=== PATIENT | male | born 1955 | race Caucasian/White ===

== ENCOUNTER → 2017-10-22 | Outpatient (REF) | payer OTHER | LOC: M SMT 13:07 | DX: R97.20 Elevated prostate specific antigen [PSA] (principal) ==

== ENCOUNTER → 2017-10-26 | Outpatient (CLI) | payer OTHER | LOC: M SMT PRO 08:21 | DX: R97.20 Elevated prostate specific antigen [PSA] (principal); N40.1 Benign prostatic hyperplasia with lower urinary tract symptoms | CPT/HCPCS: G0416 ==

== ENCOUNTER → 2018-11-07 | Outpatient (REF) | payer OTHER | LOC: M SMT 17:02 | PROVIDERS: ATTEND Nurse Practitioner Family | DX: R97.20 Elevated prostate specific antigen [PSA] (principal) ==

== ENCOUNTER → 2019-02-01 | Outpatient (CLI) | payer OTHER ==
[~2019-02-01] MED LIST: FINA5TAB2 PO; FLOM0.4C39 PO
--- NOTE | 2019-02-03 14:44 | REP ---
PET/CT: HISTORY: Diagnosing solitary pulmonary nodule. Recent CT study read as showing a 3 cm nodular density in the right upper lobe. COMPARISONS: Comparison CT study of the chest December 30, 2018. TECHNIQUE: 57 minutes following the intravenous injection of a 8.10 mCi dose of F-18 FDG, three-dimensional PET scintigraphy is acquired from the skull base to the proximal thighs. Triplanar noncontrast CT scanning is acquired through the same anatomic range for attenuation correction, and image registration with scan parameters optimized to minimize radiation exposure to the patient. PET scintigraphy and CT datasets were fused and displayed on a workstation with multiplanar and projection display capability. PET/CT FINDINGS: There is a focus of hypermetabolic uptake in the pleural-based nodular opacity with associated fibrosis in the right upper lobe near the apex. This has maximum standard uptake value of 6.02. It has a somewhat linear morphology. Medially adjacent to this, there is a tiny focus of metabolic activity with maximum SUV value 3.42 along the pleural surface at the medial edge of the posterior 4th rib. No nodule or mass lesion is visible here. This is of uncertain significance. There is no other abnormal pulmonary parenchymal hypermetabolic uptake. There is no abnormal mediastinal or hilar hypermetabolic uptake. In the abdomen and pelvis, there is no abnormal adrenal hepatic or other hypermetabolic abnormality. Head and neck soft tissues are unremarkable. Prostate gland is enlarged. IMPRESSION: There is hypermetabolic uptake in the nodular density at the apex of the right lung. This has a somewhat linear morphology and there is a second pleural-based focus of uptake medially. These changes are nonspecific. They may be granulomatous or neoplastic. No other abnormal hypermetabolic uptake. Electronically Signed by Thomas Evans MD 02/05/2019 12:12 P
== END ==
LOC: M PLARAD 09:06
PROVIDERS: ATTEND Internal Medicine Pulmonary Disease
DX: R91.1 Solitary pulmonary nodule (principal)
CPT/HCPCS: 78815; A9552

== ENCOUNTER → 2019-02-09 | Outpatient (REF) | payer OTHER ==
[2019-02-09 17:55] LABS: INR 0.95; PROTHROMBIN TIME 12.8 SECONDS (12.1-14.4)
[2019-02-09 17:56] LABS: PARTIAL THROMBOPLASTIN TIME 31.6 SECONDS (25.4-37.6)
== END ==
LOC: M LAB REF 17:17
PROVIDERS: ATTEND Physician Assistant
DX: R91.1 Solitary pulmonary nodule (principal)

== ENCOUNTER → 2019-02-20 | Outpatient (CLI) | payer OTHER ==
[~2019-02-20] MED LIST changes: +LIDOCAINE 1% MDV 20ML VIAL As Ordered ONE
--- NOTE | 2019-02-20 11:46 | REP ---
CHEST, SINGLE EXPIRATORY VIEW: Single expiratory view of the chest is performed status post right lung biopsy. There is no pneumothorax. Right apical irregular nodular opacity is seen with right apical bullous changes as well. The heart is normal in size. Dependent atelectatic changes are seen inferiorly. IMPRESSION: No pneumothorax status post right lung biopsy. Electronically Signed by Luc Martini MD 02/20/2019 07:47 P
--- NOTE | 2019-02-20 18:42 | REP ---
CT-GUIDED RIGHT UPPER LOBE LUNG BIOPSY The procedure was performed under the direct supervision of Dr. Martini. The patient has a history of hypermetabolic uptake in an nodular density in the apex of the right lung seen on a previous PET scan dated 02/01/2019. The risks and benefits of the procedure were explained to the patient and informed consent was obtained. The right upper lobe lung nodule was localized using CT guidance. The skin was prepped and draped in a sterile fashion. 1% lidocaine was used as a local anesthetic. Using CT guidance a 19/20 gauge coaxial needle biopsy system was inserted and advanced into the nodule. Four core biopsy samples were obtained and sent to lab. The patient tolerated the procedure well and there were no immediate complications. After the appropriate amount of monitored convalescence the patient was discharged from the department. Reviewed by BIRGIT Canseco 02/20/2019 03:35 P Electronically Signed by Luc Martini MD 02/20/2019 06:34 P
== END ==
LOC: M RADPRO 08:03
PROVIDERS: ATTEND Physician Assistant
DX: J84.10 Pulmonary fibrosis, unspecified (principal); R91.1 Solitary pulmonary nodule

== ENCOUNTER → 2019-06-02 | Outpatient (CLI) | payer OTHER ==
[~2019-06-02] MED LIST changes: -LIDOCAINE 1% MDV 20ML VIAL As Ordered ONE
--- NOTE | 2019-06-02 09:50 | REP ---
CT chest without contrast: History: Solitary pulmonary nodule. On February 20, 2019, the patient underwent CT guided needle biopsy of a pleural-based process in the right upper lobe with histologic result of fibrous tissue with focal anthracotic pigmentation and chronic inflammation. Comparison chest CT study December 30, 2018 from [facility]. Comparison PET/CT study February 01, 2019. Findings: There is a stable appearing area of pleuroparenchymal fibrosis at the site of the recent CT guided needle biopsy. This is unchanged from December 30, 2018. This is the area where PET/CT showed increased uptake. There are adjacent large emphysematous bullae. There are some emphysematous bullae in the left apex. Advanced emphysema is seen throughout the upper lobes and to a lesser extent, the lower lobes. There is a fairly large bullous in the right lower lobe unchanged. No new pulmonary nodule or mass lesion is seen. No hilar or mediastinal adenopathy is observed. There are granulomatous lymph node calcifications on the left. No endobronchial lesion is seen. No bony destructive lesion is appreciated. Impression: Advanced COPD changes. Stable area of pleuroparenchymal fibrosis and/or thickening in the right apex. Unchanged from December 30, 2018 CT study. Electronically Signed by Thomas Evans MD 06/02/2019 04:00 P
== END ==
LOC: M RAD 08:27
PROVIDERS: ATTEND Internal Medicine Pulmonary Disease
DX: J44.9 Chronic obstructive pulmonary disease, unspecified (principal)

== ENCOUNTER → 2019-09-08 | Outpatient (REF) | payer OTHER | LOC: M SMT 13:44 | PROVIDERS: ATTEND Nurse Practitioner Family | DX: R97.20 Elevated prostate specific antigen [PSA] (principal) ==

== ENCOUNTER → 2020-01-18 | Outpatient (CLI) | payer OTHER ==
[~2020-01-18] MED LIST changes: +PROHANCE 279.3MG/ML 15ML VIAL (A9576) As Ordered ONE
--- NOTE | 2020-01-18 14:41 | REP ---
MULTIPARAMETRIC PROSTATE MRI STUDY WITH AND WITHOUT GADOLINIUM: HISTORY: Elevated PSA. TECHNIQUE: Multiple sequences obtained in the axial, coronal and sagittal planes, with images centered on the prostate. Prostate is enlarged. There is diffuse heterogeneous signal and enhancement with nodular areas of mixed signal throughout the central and transitional zone consistent with benign prostatic hypertrophy. There is mild diffuse thickening of the bladder wall. No adenopathy or free fluid is seen in the pelvis. No bone lesion is seen of the pelvic osseous structures. The prostate measures 6.7 x 5.0 x 7.6 cm for a total volume of 102.27 mL. Three regions of interest are identified of the prostate for MR ultrasound fusion guided biopsy. First in the right mid apical transitional zone, there is an area of mixed hyperintense and hypointense signal on T2, which is not encapsulated or well defined. There are areas of type 2 enhancement internally. The area measures 2.1 x 0.9 x 2.8 cm for a total volume of 2.58 mL. Overall level of suspicion is 3 out of 5 with clinically significant cancer equivocal. Next, in the left basilar anterior transitional zone, mid transitional zone, and left apical anterior transitional zone, there is a geographic area of predominantly T2 signal hyperintensity which is not well-defined. There are areas of internal type 2 enhancement. The area measures 2.2 x 1.3 x 3.5 cm for a total volume of 5.51 mL. Overall level of suspicion is 3 out of 5 with clinically significant cancer equivocal. Finally, in the left mid posterior peripheral zone, there is a band of low signal on T2 and diffusion-weighted images. There is predominantly type 1 enhancement in this region. The area measures 2.1 x 0.6 x 1.7 cm for a total volume of 1.19 mL. Overall level of suspicion is 3 out of 5 with clinically significant cancer equivocal. IMPRESSION: Three regions of interest are identified and marked for consideration for ultrasound MR fusion-guided biopsy. Prostate is significantly enlarged with findings of benign prostatic hypertrophy. Electronically Signed by Luc Martini MD 01/18/2020 02:37 P
== END ==
LOC: M RAD 10:58
PROVIDERS: ATTEND Nurse Practitioner Family
DX: R97.20 Elevated prostate specific antigen [PSA] (principal)
CPT/HCPCS: 72197; A9576

== ENCOUNTER → 2020-01-30 | Outpatient (CLI) | payer OTHER ==
[~2020-01-30] MED LIST changes: -PROHANCE 279.3MG/ML 15ML VIAL (A9576) As Ordered ONE
--- NOTE | 2020-01-30 11:16 | REPPI ---
TRANSRECTAL ULTRASOUND GUIDANCE FOR PROSTATE BIOPSY: Transrectal ultrasound guidance was provided for prostate biopsy performed by Dr. Pedersen. This is MR ultrasound fusion-guided biopsy, with prostate MRI performed 01/18/2020. Electronically Signed by Luc Martini MD 01/30/2020 01:03 P
== END ==
LOC: M SMT PRO 08:37
PROVIDERS: ATTEND Urology
DX: R97.20 Elevated prostate specific antigen [PSA] (principal)
CPT/HCPCS: 76942; G0416

== ENCOUNTER → 2020-03-05 | Outpatient (CLI) | payer OTHER ==
--- NOTE | 2020-03-06 08:10 | REP ---
REASON FOR EXAM: Followup hypermetabolic activity seen in the right lung upper lobe region, pleural based on the prior PET/CT scan of 02/01/2019, which has been reviewed. After the intravenous administration of 8.57 millicuries of FDG 18 triplane whole body PET/CT was performed from the skull base to the mid thigh. Prior CT has been reviewed. The pleural-based right upper lobe medial and paraspinal hypermetabolic activity seen on the prior examination has increased in size and has increased avidity for FDG 18 showing maximal SUV values of 25. Additionally, inferior to the aforementioned and posteriorly, there is a smaller pleural-based nodule also hypermetabolic having maximal SUV values of 3.76. This small area was not present on the prior exam as a hypermetabolic focus, however, by standard CT appeared to be slight pleural thickening. The more superior, medial, and larger of the two regions measures approximately 3.7 x 1.7 cm. There are no additional abnormal areas of abnormal hypermetabolic activity seen in the neck, chest, abdomen or pelvis. IMPRESSION: Areas of pleural-based and somewhat nodular hypermetabolic activity seen in the right lung upper lobe as described above. Certainly, reactive infectious, fibrotic, or neoplastic changes remain in the differential diagnosis. Electronically Signed by Jose Raul Cho DO 03/06/2020 11:22 A
== END ==
LOC: M PLARAD 07:29
PROVIDERS: ATTEND Internal Medicine Pulmonary Disease
DX: R91.1 Solitary pulmonary nodule (principal)
CPT/HCPCS: 78815; A9552

== ENCOUNTER → 2020-03-08 | Outpatient (REF) | payer OTHER ==
[2020-03-08 17:58] LABS: PLATELET COUNT, AUTOMATED 266 10^3/uL (150-450)
[2020-03-08 18:09] LABS: INR 0.93; PROTHROMBIN TIME 12.2 SECONDS (11.8-14.0)
== END ==
LOC: M LAB REF 16:56
PROVIDERS: ATTEND Internal Medicine Pulmonary Disease
DX: R91.8 Other nonspecific abnormal finding of lung field (principal)

== ENCOUNTER → 2020-03-22 | Outpatient (CLI) | payer OTHER ==
[~2020-03-22] MED LIST changes: +LIDOCAINE 1% MDV 20ML VIAL As Ordered ONE; +MIDAZOLAM INJ 2MG/2ML VIAL (J2250 PER 1MG) As Ordered ONE; +flumazeniL 0.5 MG/5 ML VIAL As Ordered ONE
[2020-03-22 12:00] VITALS: BP 126/82
--- NOTE | 2020-03-22 12:54 | REP ---
Chest x-ray: Two views. History: Post CT guided needle biopsy procedure, two targets right lung. Comparison chest x-ray: February 20, 2019. Findings: Oxygen delivery tubing is seen. There is a small fluid level in the right mid lung zone bullous. This was adjacent to the second CT guided needle biopsy target. There is no visible pneumothorax. There is pleuroparenchymal opacity in the right apex unchanged. Impression: No pneumothorax seen. Electronically Signed by Thomas Evans MD 03/22/2020 12:45 P
--- NOTE | 2020-03-22 12:54 | REP ---
Chest x-ray: Single view. 12:14 p.m. film. History: Follow-up. Post needle biopsy procedure right chest, two targets. Comparison radiograph is from earlier this date 10:22 a.m. Findings: The previously noted air-fluid level in the right perihilar region persists posteriorly in the right lower lobe unchanged. There is no evidence of pneumothorax or rubén hydrothorax. Lung craig are otherwise clear and unchanged. Impression: No pneumothorax seen. Findings unchanged. Electronically Signed by Thomas Evans MD 03/22/2020 12:45 P
--- NOTE | 2020-03-22 17:50 | REP ---
CT-GUIDED RIGHT UPPER LOBE AND RIGHT LOWER LOBE LUNG BIOPSY The procedure was performed under the direct supervision of Dr. Evans. Patient has a history of A pleural-based right upper lobe mass which is hypermetabolic on a previous PET scan performed on 03/05/2020. There is a smaller right lower lobe nodule which is hypermetabolic as well. The risks and benefits of the procedure were explained to the patient and informed consent was obtained. The right upper lobe lesion was addressed first. The lesion was localized using CT guidance. The skin was prepped and draped in a sterile fashion. 1% lidocaine was used as a local anesthetic. Using CT guidance a 19/20 gauge coaxial needle biopsy system was inserted and advanced into the lesion. Five core biopsy samples were obtained and sent to lab. The right lower lobe lung nodule was then addressed. The nodule was localized using CT guidance. The skin was prepped and draped in a sterile fashion. 1% lidocaine was used as a local anesthetic. Using CT guidance a 19/20 gauge coaxial needle biopsy system was inserted and advanced into the nodule. Five core biopsy samples were obtained and sent to lab. Post biopsy images demonstrate a small pneumothorax. These are not evident on the post procedure chest x-rays. The patient tolerated the procedure well and there were no immediate complications. After the appropriate amount of monitored convalescence the patient was discharged from the department. Electronically Signed by BIRGIT Canseco 03/22/2020 02:07 P Electronically Signed by Thomas Evans MD 03/22/2020 05:39 P
== END ==
LOC: M IRPRO 08:13
PROVIDERS: ATTEND Internal Medicine Pulmonary Disease
DX: C34.11 Malignant neoplasm of upper lobe, right bronchus or lung (principal); J84.9 Interstitial pulmonary disease, unspecified
CPT/HCPCS: 32405; 77012; 88305; 88341; 88342; J2250

== ENCOUNTER → 2020-04-02 | Outpatient (CLI) | payer OTHER ==
[~2020-04-02] MED LIST changes: -LIDOCAINE 1% MDV 20ML VIAL As Ordered ONE; -MIDAZOLAM INJ 2MG/2ML VIAL (J2250 PER 1MG) As Ordered ONE; +ONDA8TAB10 PO; +PROC10TA4 PO; -flumazeniL 0.5 MG/5 ML VIAL As Ordered ONE
[2020-04-02 16:33] LABS: BASO # 0.1 10^3/uL (0.0-0.2); BASO % 0.6 % (0.0-1.0); EOS % 0.4 % (0.0-3.0); HEMOGLOBIN 16.3 g/dl (13.5-17.5); LYMPH # 1.1 10^3/uL (1.5-5.0); LYMPH % 13.4 % (24.0-44.0); MEAN CORPUSCULAR HGB CONC 33.3 g/dl (32.0-36.5); MEAN CORPUSCULAR VOLUME 96.3 fl (80.0-96.0); MONO # 0.7 10^3/uL (0.0-0.8); MONO % 7.8 % (0.0-5.0); NEUTROPHILS # 6.6 10^3/uL (1.5-8.5); NEUTROPHILS % 77.4 % (36.0-66.0); PLATELET COUNT, AUTOMATED 283 10^3/uL (150-450); RED BLOOD COUNT 5.09 10^6/uL (4.30-6.10); WHITE BLOOD COUNT 8.5 10^3/uL (4.0-10.0)
[2020-04-02 16:45] LABS: INR 0.93; PARTIAL THROMBOPLASTIN TIME 35.2 SECONDS (25.0-38.4); PROTHROMBIN TIME 12.2 SECONDS (11.8-14.0)
[2020-04-02 16:57] LABS: ALBUMIN 3.8 GM/DL (3.2-5.2); ALT/SGPT 34 U/L (12-78); BILIRUBIN,TOTAL 0.4 MG/DL (0.2-1.0); BLOOD UREA NITROGEN 12 MG/DL (7-18); CALCIUM LEVEL 9.4 MG/DL (8.8-10.2); CARBON DIOXIDE LEVEL 29 MEQ/L (21-32); CHLORIDE LEVEL 103 MEQ/L (98-107); CREATININE FOR GFR 1.13 MG/DL (0.70-1.30); FREE T4 1.14 NG/DL (0.76-1.46); GLOMERULAR FILTRATION RATE > 60.0 (>49); GLUCOSE, FASTING 96 MG/DL (70-100); POTASSIUM SERUM 4.3 MEQ/L (3.5-5.1); SODIUM LEVEL 137 MEQ/L (136-145); TOTAL PROTEIN 7.8 GM/DL (6.4-8.2)
== END ==
LOC: M LAB 15:58
PROVIDERS: ATTEND Internal Medicine Medical Oncology
DX: C34.90 Malignant neoplasm of unspecified part of unspecified bronchus or lung (principal)

== ENCOUNTER → 2020-04-10 | Outpatient (CLI) | payer OTHER ==
[~2020-04-10] MED LIST changes: +LIDO2.5C15 TOP; +LIDOCAINE 1% MDV 20ML VIAL As Ordered ONE; +MIDAZOLAM INJ 2MG/2ML VIAL (J2250 PER 1MG) As Ordered ONE; +ceFAZolin 1GM VIAL (J0690 PER 500MG) As Ordered ONE; +diphenhydrAMINE 50MG/ML VIAL (J1200) As Ordered ONE; +fentaNYL 100 MCG/2 ML INJECTION (J3010) As Ordered ONE
--- NOTE | 2020-04-10 16:12 | IRHP ---
[facility] IR Pre-Procedure H & P General Date of Service: Apr 10, 2020 Procedure: Same Day Surgery Interval History and Physical I have seen the patient and reviewed last H & P performed within 30 days. There is no significant interval change. History of Present Illness Chief Complaint The patient is a 64-year-old male admitted with a reason for visit of Lung Ca. PRE-PROCEDURE DIAGNOSIS:lung cancer HEART: normal rate. LUNGS: normal breathing at rest. ASA Classification ASA Classification: III-Severe systemic dis. Mallampati Score: II NPO: Yes Problems with prior sedation: No Obstructive Sleep Apnea: No Plan moderate sedation Allergies Coded Allergies: No Known Allergies (Unverified , 02/20/19) Home Medications Scheduled Finasteride (Finasteride), 5 MG PO QPM, (Reported) Tamsulosin HCl (Flomax), 0.4 MG PO QPM, (Reported) VS, I&O, 24H, Fishbone Vital Signs/I&O Vital Signs Date Time Temp Pulse Resp B/P (MAP) Pulse Ox O2 Delivery O2 Flow Rate FiO2 04/10/20 15:46 78 18 96 Room Air 04/10/20 15:07 2 04/10/20 13:45 98.7 TOMMY KOHLER MD Apr 10, 2020 16:12
--- NOTE | 2020-04-10 16:12 | REP ---
IR Ultrasound and fluoroscopy-guided port placement. IR Ultrasound of the neck. IR Moderate sedation. Clinical information: Lung cancer. Physician: Dr. Ruvalcaba. Procedure: The patient was advised of the benefits, risks, and alternatives of the procedure and informed consent was obtained. A time-out was performed with verification of the patient's name, MRN, site of procedure and type of procedure to be performed. The patient was positioned in the supine position on the angiographic table. The site was prepped and draped in the usual sterile fashion. Moderate sedation was performed by the physician including the presence of an independent trained observer who assisted and monitored the patient's level of consciousness and physiologic status. Following the administration of fentanyl and Versed , the physician spent 30 minutes of continuous face to face time with the patient. Ultrasound of the neck reveals a patent and compressible right internal jugular vein. A director targeted marketing radiograph reveals aerated right lung. The neck and anterior chest wall were anesthetized with lidocaine. The right internal jugular vein was accessed using a microintroducer needle under ultrasound guidance, via a lateral approach. An 018 wire was advanced into the superior vena cava, the needle was removed and a microsheath was placed. An Amplatz wire was then passed into the inferior vena cava. An incision at the internal jugular vein access site and anterior chest wall were made using a scalpel. An incision was made at the anterior chest wall. A small pocket was created using a combination of blunt and sharp dissection. A tunneling device was then used to pass the catheter from the pocket to the neck puncture site. An 8-[place] Angio dynamics Smart power port was then positioned in the pocket. The catheter was then measured and cut. The introducer sheath was exchanged for a peel-away sheath. The catheter was passed through the peel-away sheath into the internal jugular vein and the peel-away sheath was removed. The port tip was positioned at the cavoatrial junction. The port was then accessed with a Faith needle. The port flushes and aspirates well. The puncture site in the neck was closed. The chest wall incision was then closed with 2-0 Vicryl and 4-0 Monocryl. Glue and Steri-Strips were applied. A sterile dressing was then applied. The patient tolerated the procedure well and was returned to the PRU in stable condition. Estimated blood loss: <5 ml. Complications: None. Conclusion: 1. Successful placement of an 8-[place] Angio dynamics Smart power port via the right internal jugular vein. The port is ready for immediate use. 2. Patient to follow up in IR clinic in 2 weeks. Thank you for this referral. Electronically Signed by Kristen Ruvalcaba MD 04/10/2020 04:11 P
[2020-04-10 16:46] VITALS: BP 120/79
== END ==
LOC: M IRPRO 13:26
PROVIDERS: ATTEND Internal Medicine Medical Oncology
DX: C34.11 Malignant neoplasm of upper lobe, right bronchus or lung (principal)
CPT/HCPCS: 36561; 99156; 99157; C1769; C1788; C1894; J0690; J1200; J1642; J1644; J2250; J3010

== ENCOUNTER → 2020-04-30 | Outpatient (POV) | payer OTHER ==
[~2020-04-30] MED LIST changes: -LIDOCAINE 1% MDV 20ML VIAL As Ordered ONE; -MIDAZOLAM INJ 2MG/2ML VIAL (J2250 PER 1MG) As Ordered ONE; -ceFAZolin 1GM VIAL (J0690 PER 500MG) As Ordered ONE; -diphenhydrAMINE 50MG/ML VIAL (J1200) As Ordered ONE; -fentaNYL 100 MCG/2 ML INJECTION (J3010) As Ordered ONE
--- NOTE | 2020-06-06 10:29 | IRPN ---
[facility] IR Progress Note IR Progress Note DATE: Apr 30, 2020 Patient agreed to this telephone follow-up. Duration of call 5 minutes. FOLLOW-UP: Status post port placement. Patient states he is doing well. Reports no pain, fevers, chills or discharge at site. Port has not been used yet. ON EXAMINATION: Video conference: Port site looks good. No redness, swelling or discharge at site. IMPRESSION: Doing well status post port placement. No further follow-up scheduled unless initiated by patient and/or referring provider. Thank you for this referral Allergies Coded Allergies: No Known Allergies (Unverified , 02/20/19) TOMMY KOHLER MD Jun 06, 2020 10:29
== END ==
LOC: M IRPOV 09:45
PROVIDERS: ATTEND Radiology Diagnostic Radiology
DX: Z45.2 Encounter for adjustment and management of vascular access device (principal)

== ENCOUNTER → 2020-06-03 | Outpatient (RCR) | payer OTHER | LOC: M ONCR 05-10 15:03 | PROVIDERS: ATTEND General Practice | DX: C34.11 Malignant neoplasm of upper lobe, right bronchus or lung (principal) ==

== ENCOUNTER 2020-06-25 09:00 | Outpatient (RCR) | payer OTHER ==
--- NOTE | 2020-07-08 08:05 | RADONC ---
DATE: 06/25/20 Chart #[id number] DIAGNOSIS: 1. Right upper lobe lung cancer. Stage IIIA, T4, N0, M0. ECOG performance status 0. TREATMENT SUMMARY: Mr. 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 We treated the patient to his right upper lobe for a total dose of 6000 cGy delivered in 30 fractions of 200 cGy, each over 42 elapsed days, from 05/14/20 through 06/25/20. The patients right upper lobe was treated on a linear accelerator utilizing a 6 MV photon beam with IMRT/IGRT. Mr. Field tolerated his treatments quite well with no significant difficulties related to his radiation therapy. He had some fatigue but otherwise did well. The patient is scheduled to be seen in our department in six months for routine follow-up visit. In the meantime, he is being seen and managed closely by his medical oncologist. We are happy to see him sooner on a p.r.n. basis as needed. Edited: 07/08/2020 1118 vlm MTDD
== END 2020-07-03 ==
LOC: M ONCR 09:00
PROVIDERS: ATTEND General Practice
DX: C34.11 Malignant neoplasm of upper lobe, right bronchus or lung (principal)

== ENCOUNTER → 2020-07-05 | Outpatient (CLI) | payer OTHER ==
[~2020-07-05] MED LIST changes: +GASTROGRAFIN SOLUTION 30ML (Q9963) As Ordered ONE; +ISOVUE-370 76% 100ML VIAL As Ordered ONE
--- NOTE | 2020-07-15 12:45 | REP ---
CT ABDOMEN WITH INTRAVENOUS (IV) AND ORAL CONTRAST HISTORY: Lung cancer. COMPARISON: PET CT study 03/05/2020. CT CONTRAST DOSE: 100 mL of intravenous Isovue-370. CT FINDINGS: The liver and the spleen are normal in size and homogeneous in texture. No adrenal lesion is seen on either side. There is a small peripheral cyst in the upper pole of the right kidney. No abnormality is noted in the pancreas. The gallbladder is unremarkable. Small and large intestinal bowel loops show no evidence of mass or obstructive lesion. No retroperitoneal mass or adenopathy is seen. IMPRESSION: No evidence of upper abdominal metastatic disease. MTDD
--- NOTE | 2020-07-15 12:46 | REP ---
CT CHEST WITH INTRAVENOUS (IV) CONTRAST HISTORY: Lung carcinoma. COMPARISON: Chest CT study 02/01/2020. PET CT 03/05/2020. CT CONTRAST DOSE: 100 mL of intravenous Isovue-370. CT FINDINGS: There is a 5.6 cm area of metastatic rib destruction involving the right posterior fourth rib. There is some adjacent pleural thickening and soft tissue density. This is the area where CT-guided needle biopsy was conducted on 03/22/2020. This corresponds to the pleural uptake focus on 03/05/[address] There is radiolucent and cortical disruption of the adjacent right T4 transverse process associated with this. The bony destructive findings are much more pronounced than the equivocal changes seen at the time of the 02/01/2020 CT study. There has been progression since the PET CT of 03/05/2020 as well. No new bony destructive lesion is seen. No adrenal lesion is observed. No pleural or pericardial effusion is observed. No hilar or mediastinal mass or adenopathy has developed. There is some pleural parenchymal scarring in the right apex, which is adjacent to the chest wall lesion described above. This is unchanged. The nodular density, which was biopsied recently, is no longer apparent. There is a new pleural-based nodular opacity, which measures 12 mm in diameter. This is seen along the major fissure and may be fissural fluid. It was not present on the March or January CT studies. No other new pulmonary nodule is seen. There are advanced emphysematous changes bilaterally in the upper and to a lesser extent lower lobes. IMPRESSION: Progressive bone destruction right 4th posterior rib and adjacent right T4 transverse process. Emphysematous changes. Otherwise no active disease. MTDD
== END ==
LOC: M RAD 07:54
PROVIDERS: ATTEND Internal Medicine Medical Oncology
DX: C34.90 Malignant neoplasm of unspecified part of unspecified bronchus or lung (principal); C79.51 Secondary malignant neoplasm of bone; J43.9 Emphysema, unspecified; N28.1 Cyst of kidney, acquired

== ENCOUNTER → 2020-10-15 | Outpatient (CLI) | payer OTHER ==
--- NOTE | 2020-10-15 11:45 | REP ---
INDICATION: LUNG CA COMPARISON: 07/05/2020 TECHNIQUE: Axial contrast enhanced images from the thoracic inlet to the upper abdomen with coronal and sagittal reformations using 75 ml Isovue [address] examination was performed using the following dose reduction techniques: Automated exposure control, adjustment of mA and/or kv according to the patient's size, and use of iterative reconstruction technique. FINDINGS: Lung craig demonstrate advanced COPD/emphysematous changes with bronchiectasis and scarring. Pleuroparenchymal changes along the posterior aspect of the right upper lung zone including pleural thickening and pleural based soft tissue with linear scarring is similar to prior examination although these findings may be slightly increased as compared through 06/02/2019 exam. Continued active pathology versus chronic progressive fibrosis cannot be distinguished. No further acute consolidation or significant nodule/mass lesion appreciated. The mediastinum demonstrates stable thoracic aorta, pulmonary vasculature, and heart/pericardium along with few partially calcified lymph nodes. No axillary, hilar, or mediastinal adenopathy is identified. [id number] noted with tip in the SVC. Musculoskeletal structures demonstrate age-related degenerative changes without acute process. IMPRESSION: 1. Advanced COPD/emphysematous changes with bronchiectasis and scarring essentially unchanged. 2. Pleuroparenchymal changes along the posterior aspect of the right upper lung zone appears somewhat progressive when compared through 06/02/2019 and relatively similar to most recent prior exam dated 07/05/2020. Differential diagnosis unfortunately includes subtle active pathology as well as progressive fibrosis. 3. No further significant consolidation, nodule or mass lesion appreciated. No adenopathy identified. <Electronically signed by Maikel Horne > 10/15/20 2201
== END ==
LOC: M RAD 09:28
PROVIDERS: ATTEND Internal Medicine Medical Oncology
DX: C34.90 Malignant neoplasm of unspecified part of unspecified bronchus or lung (principal); J44.9 Chronic obstructive pulmonary disease, unspecified
CPT/HCPCS: 71260; 74177; Q9963; Q9967

== ENCOUNTER → 2020-12-25 | Outpatient (CLI) | payer OTHER ==
[~2020-12-25] MED LIST changes: -GASTROGRAFIN SOLUTION 30ML (Q9963) As Ordered ONE; -ISOVUE-370 76% 100ML VIAL As Ordered ONE
--- NOTE | 2020-12-25 09:30 | RADONC ---
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 He is s/p chemoradiation 60 Gy in 30 fractions completed 06/25/21. His initial complaint of back pain resolved entirely by the end of chemoradiation. He also had an initial excellent response on CT from 07/05/20 (disagree strongly with radiologist's read) and continued on adjuvant chemotherapy with Dr. Sarmiento. He received 4 cycles of carbo/taxol completed 10/29/20. He continues on keytruda monotherapy. Diagnosis/Treatment History Oncologic History As above Recent data: 10/15/20 CT chest Mild pleural thickening in the RUL, consistent with post treatment fibrosis. No new masses. Survivorship Test Due Next Last result Notes TSH, T4* 6m post-tx, then q1y 2021 TSH 1.3 12/17/20 Carotid US* q10 y post-tx N/A Smoking cessation Assess annually if applicable 2021 2020: Not interested Chest imaging As indicated, indefinite CT surveillance -02/[address] Sarmiento Mammograms Min q1y, in eligible female patients N/A Echocardiogram q10y post treatment if mediastinum treated N/A PFTs As indicated N/A CBC,CMP, Lipids q1y 2021 Interval History Feels well. Mild COPD symptoms. Not on any controller or rescue inhaled meds. No pain in the back. Had a skin reaction redness/dryness post RT which has healed. Main complaint is alopecia post chemotherapy. Hair coming back slowly. No side effects from Keytruda. 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 Do not rub in, cover with saran wrap to protect clothing. Prov:TRE SARMIENTO MD 05/28/20 Prochlorperazine Maleate (Prochlorperazine Maleate) 10 Mg Tablet, 10 MG PO Q6H PRN for NAUSEA OR VOMITING, #30 TAB 2 Refills Prov:TRE SARMIENTO MD 04/12/20 Ondansetron HCl (Ondansetron HCl) 8 Mg Tablet, 8 MG PO Q8H PRN for NAUSEA, #30 TAB 2 Refills Prov:TRE SARMIENTO MD 04/12/20 Reported Medications Finasteride (Finasteride) 5 Mg Tablet, 5 MG PO QPM, TAB 02/20/19 Tamsulosin HCl (Flomax) 0.4 Mg Capsule, 0.4 MG PO QPM, CAP 02/20/19 Review of Systems Review of Systems Constitutional: Reports: Fatigue; Denies: Chills, Fever, Malaise, Weight Loss Eyes: Denies: Pain HEENT: Denies: Head Aches Skin: Denies: Rash Pulmonary: Reports: Dyspnea, Cough; Denies: Pleuritic Chest Pain Cardiovascular: Denies: Chest Pain, Palpitations Gastrointestinal: Denies: Nausea, Vomiting, Abdominal Pain Hematologic: Denies: Bruising Endocrine: Denies: Cold Intolerance Musculoskeletal: Denies: Neck pain, Back pain Neurological: Denies: Weakness, Numbness, Incoordination Psych: Reports: Mood Normal Physical Examination Vital Signs Ht 70" Wt 159 lbs T 97.5 P 90 RR 18 BP 127/76 O2 99% Pain 0 Fatigue 2 General Exam: Positive: Alert, Cooperative, No Acute Distress Eye Exam: Positive: PERRLA, EOMI ENT EXAM: Positive: Atraumatic, Mucous membr. moist/pink Neck Exam: Positive: Supple; Negative: Lymphadenopathy Chest Exam: Positive: Clear to auscultation, Rhonchi (Bases BL) Heart Exam: Positive: Rate Normal, Regular Rhythm Abdomen Exam: Positive: Soft; Negative: Tenderness Extremity Exam: Negative: Edema Skin Exam: Positive: Nl turgor and temperature; Negative: Other skin issue (Left posterior chest wall and back without hyperpigmentation or telangiectasias) Neuro Exam: Positive: Normal Gait, Normal Speech Psych Exam: Positive: Mental status NL Diagnostic and Laboratory Diagnostic Review Radiologic images, relevant labs and pathology reports were personally reviewed and discussed with Mr. Field. Assessment and Plan Impression Assessment Mr. 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 He is s/p chemoradiation 60 Gy in 30 fractions completed 06/25/21. His initial complaint of back pain resolved entirely by the end of chemoradiation. He also had an initial excellent response on CT from 07/05/20 (disagree strongly with radiologist's read) and continued on adjuvant chemotherapy with Dr. Sarmiento. He received 4 cycles of carbo/taxol completed 10/29/20. He continues on keytruda monotherapy. He is doing very well, in clinical remission. No recrudescent back pain and no signs of post-RT pneumonitis. He is continuing on keytruda without side effects. Dr. Sarmiento is planning scans for later this Spring. He continues to follow with Dr. Driscoll as well. He is not in need of COPD medication at this time. He is also not interested in smoking cessation. I think continued regular follow up with Dr. Sarmiento is most important now as she is treating him actively. I will thus see him again in 6 months time and defer ordering of scans to her. Performance Status ECOG 0 Plan Follow up in 6 months time Scans per Dr. Sarmiento Mr. Field was encouraged to call with questions or concerns in the interim period. Billing Statement Total time of [22] minutes was spent preparing for the visit [2], obtaining HPI [4], examining the patient [3], reviewing diagnostic tests [3], discussing management options [4], coordinating care [0], and writing this note [6]. ELDER CABALLERO MD Dec 25, 2020 09:30
== END ==
LOC: M ONCR 08:43
PROVIDERS: ATTEND General Practice
DX: C34.11 Malignant neoplasm of upper lobe, right bronchus or lung (principal)

== ENCOUNTER → 2021-02-10 | Outpatient (CLI) | payer OTHER ==
[~2021-02-10] MED LIST changes: +GASTROGRAFIN SOLUTION 30ML (Q9963) As Ordered ONE; +ISOVUE-370 76% 100ML VIAL As Ordered ONE; +LIDO1CRE42 TOP; -LIDO2.5C15 TOP
--- NOTE | 2021-02-12 08:15 | REP ---
INDICATION: LUNG CANCER COMPARISON: 10/15/2020, 07/05/2020 TECHNIQUE: Axial contrast enhanced images from the thoracic inlet to the upper abdomen using 100 ml Isovue 370 intravenous contrast material followed by CT of the abdomen and pelvis. Coronal and sagittal reformations obtained.. This CT examination was performed using the following dose reduction techniques: Automated exposure control, adjustment of mA and/or kv according to the patient's size, and use of iterative reconstruction technique. FINDINGS: Advanced COPD/emphysematous disease with scarring and bronchiectasis again noted. There is a new suspicious 3 cm ovoid masslike opacity with spiculated margins along the posterior right lower lobe (series 204 images [id number]). Associated linear scarring and smaller 1.2 cm nodule along the more caudal posterior right lower lobe (series 204, image 86) is also identified. No further acute process. No effusion. No pneumothorax. No obvious adenopathy. Mediastinum demonstrates stable thoracic aorta, pulmonary vasculature, and heart/pericardium. Limited upper abdomen demonstrates normal bilateral adrenal glands. IMPRESSION: New masslike lesions in the posterior right lower lobe measuring roughly 3 cm and 1.2 cm. Findings are concerning for neoplasm unless proven otherwise. PET-CT is recommended and or biopsy. <Electronically signed by Maikel Horne > 02/12/21 0817
--- NOTE | 2021-02-12 08:24 | REP ---
INDICATION: LUNG CANCER. COMPARISON: 07/05/2020 TECHNIQUE: Axial contrast-enhanced images from the lung bases to the pubic symphysis using oral and 100 cc Isovue 370 intravenous contrast material. Delayed images of the abdomen obtained along with coronal and sagittal reformations. This CT examination was performed using the following dose reduction techniques: Automated exposure control, adjustment of mA and/or kv according to the patient's size, and the use of iterative reconstruction technique. FINDINGS: Liver demonstrates mild fatty infiltration with sub cm presumed cysts. No focal hepatic lesion identified. Spleen, pancreas, gallbladder, bilateral adrenal glands and left kidney are normal. Right kidney includes a stable 1.5 cm complex lesion which which is stable through 07/05/2020 and may represent complex proteinaceous cyst although follow-up ultrasound may be warranted. The enteric system including stomach, small, and large bowel appears normal. No evidence for obstruction or acute inflammatory process. Colonic diverticula noted without acute diverticulitis. Normal terminal ileum and appendix identified in the right lower quadrant. Pelvis demonstrates significantly enlarged prostate gland with mass effect on the base of the bladder. No ascites. No free air. No intraperitoneal or retroperitoneal adenopathy. Abdominal aorta and vasculature appear normal. Musculoskeletal structures are intact and without acute osseous abnormality. IMPRESSION: 1. No acute abdominopelvic pathology appreciated. 2. Hepatosteatosis. 3. Stable 1.5 cm complex right renal lesion likely proteinaceous cyst although ultrasound follow-up may be warranted for confirmation. 4. Colonic diverticulosis without acute diverticulitis. 5. Significant prostatomegaly with mass effect on the base of the bladder. <Electronically signed by Maikel Horne > 02/12/21 [id number]
== END ==
LOC: M RAD 13:36
PROVIDERS: ATTEND Internal Medicine Medical Oncology
DX: C34.90 Malignant neoplasm of unspecified part of unspecified bronchus or lung (principal); J44.9 Chronic obstructive pulmonary disease, unspecified; K57.30 Diverticulosis of large intestine without perforation or abscess without bleeding; K76.0 Fatty (change of) liver, not elsewhere classified; N40.0 Benign prostatic hyperplasia without lower urinary tract symptoms; N28.89 Other specified disorders of kidney and ureter
CPT/HCPCS: 71260; 74177; Q9963; Q9967

== ENCOUNTER → 2021-04-21 | Outpatient (CLI) | payer OTHER ==
[~2021-04-21] MED LIST changes: +ALBU8.5H INH; +COVI100V IM; -GASTROGRAFIN SOLUTION 30ML (Q9963) As Ordered ONE; -ISOVUE-370 76% 100ML VIAL As Ordered ONE
--- NOTE | 2021-04-21 19:30 | REP ---
INDICATION: RESTAGING LUNG CANCER. Advanced squamous cell lung cancer right lung with direct extension into posterior rib and adjacent right T4 transverse process. Status post chemo radiation therapy completed June of 2020. COMPARISON: Comparison PET-CT studies are dated February 01, 2019 and March 05, 2020.. Comparison chest CT study February 10, 2021. TECHNIQUE: Forty-eight minutes following the intravenous injection of a 8.39 mCi dose of F-18 FDG, three-dimensional PET scintigraphy is acquired from the skull base to the proximal thighs. Triplanar noncontrast CT scanning is acquired through the same anatomic range for attenuation correction, and image registration with scan parameters optimized to minimize radiation exposure to the patient. PET scintigraphy and CT datasets were fused and displayed on a workstation with multiplanar and projection display capability. FINDINGS: Head and neck soft tissues are unremarkable. There is diffuse skeletal muscle and rib uptake slightly increased in the right lung apex consistent with post radiation change. There is some foci of pleural thickening with slightly increased uptake as well, maximum standard uptake value ranges up to 3.03. The spiculated parenchymal opacity in the right lower lobe identified on the February 10, [address] shows mildly increased uptake as well, maximum standard uptake value 3.03. This is nonspecific. The hypermetabolic right posterior apical pleural based mass with rib destruction seen on the March 07 11/23/2019 prior PET-CT study is improved. No abnormal skeletal hypermetabolic uptake is seen. No abnormal pat or mediastinal hypermetabolic uptake is seen. In the abdomen and pelvis normal distribution of FDG is seen. No abnormal hypermetabolic uptake is seen in the abdomen or pelvis. IMPRESSION: Nonspecific pleuroparenchymal findings on the right. Improved destructive chest wall mass. Post radiation changes. <Electronically signed by Demetris Evans > 04/21/211925
== END ==
LOC: M PLARAD 12:32
PROVIDERS: ATTEND Internal Medicine Medical Oncology
DX: C34.11 Malignant neoplasm of upper lobe, right bronchus or lung (principal)
CPT/HCPCS: 78815; A9552

== ENCOUNTER → 2021-08-05 | Outpatient (CLI) | payer OTHER ==
--- NOTE | 2021-08-05 13:16 | RADONC ---
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 He is s/p chemoradiation 60 Gy in 30 fractions completed 06/25/21. His initial complaint of back pain resolved entirely by the end of chemoradiation. He also had an initial excellent response on CT from 07/05/20 (disagree strongly with radiologist's read) and continued on adjuvant chemotherapy with Dr. White. He received 4 cycles of carbo/taxol completed 10/29/20. He continues on keytruda monotherapy. Diagnosis/Treatment History Oncologic History As above Recent data: 04/21/21 PET-CT Negative study Survivorship Test Due Next Last result Notes TSH, T4* 6m post-tx, then q1y 2021 TSH 1.3 12/17/20 Carotid US* q10 y post-tx N/A Smoking cessation Assess annually if applicable 2021 2020: Not interested Chest imaging As indicated, indefinite CT surveillance 08/202104/21/21 PET-CT negative Scans per Dr. White Mammograms Min q1y, in eligible female patients N/A Echocardiogram q10y post treatment if mediastinum treated N/A PFTs As indicated N/A CBC,CMP, Lipids q1y 2021 Interval History Yamilet feels well he has stable HARTMAN, some fatigue. Not out hunting yet this year. Gets an occasional rash from the keytruda infusions which are not bothersome. He has no pain in the back. Appetite and weight are stable. Current Therapy Keytruda q3w Stage [id number] SCC of the RUL (local bone invasion) stage IIIA Social History: 50+ pack year current smoker Drinks 6 beers daily Allergies / Meds Allergies: Coded Allergies: No Known Allergies (Unverified , 02/20/19) Home Meds Reported Medications Covid-19 Vacc,Mrna(Moderna)/Pf (Moderna Covid19 Vacc(Unapprov)) 100 Mcg/0.5 Ml Vial, 100 MCG IM, VIAL 02/18/21 Albuterol Sulfate (Albuterol Sulfate Hfa) 8.5 Gm Hfa.aer.ad, 1 PUFF INH PRN 02/18/21 Finasteride (Finasteride) 5 Mg Tablet, 5 MG PO QPM, TAB 02/20/19 Tamsulosin HCl (Flomax) 0.4 Mg Capsule, 0.4 MG PO QPM, CAP 02/20/19 Review of Systems Review of Systems Constitutional: Reports: Fatigue; Denies: Weight Loss Eyes: Denies: Pain HEENT: Denies: Head Aches Skin: Reports: Rash Pulmonary: Reports: Dyspnea; Denies: Cough, Pleuritic Chest Pain Cardiovascular: Denies: Chest Pain, Edema Gastrointestinal: Denies: Abdominal Pain Musculoskeletal: Denies: Neck pain, Back pain, Midthoracic pain Neurological: Denies: Weakness, Numbness Psych: Reports: Mood Normal Physical Examination Vital Signs Wt 145 lbs T 96.7 P 79 RR 17 BP 132/78 O2 98% Pain 0 Fatigue 1 General Exam: Alert, Cooperative, No Acute Distress Eye Exam: PERRLA, EOMI ENT EXAM: Atraumatic Neck Exam: Supple Chest Exam: Clear to auscultation, Normal air movement; Negative: Rhonchi, Wheezing Heart Exam: Rate Normal, Regular Rhythm Abdomen Exam: Soft Extremity Exam: Negative: Edema Skin Exam: Nl turgor and temperature Neuro Exam: Normal Gait, Normal Speech, Cranial Nerves 3-12 NL Psych Exam: Mental status NL Diagnostic and Laboratory Diagnostic Review Radiologic images, relevant labs and pathology reports were personally reviewed and discussed with Mr. Field. Assessment and Plan Impression Assessment Mr. 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 He is s/p chemoradiation 60 Gy in 30 fractions completed 06/25/21. His initial complaint of back pain resolved entirely by the end of chemoradiation. He also had an initial excellent response on CT from 07/05/20 (disagree strongly with radiologist's read) and continued on adjuvant chemotherapy with Dr. White. He received 4 cycles of carbo/taxol completed 10/29/20. He continues on keytruda monotherapy. He is doing well. He has no clinical signs of recurrence, appears to be tolerating immunotherapy without any difficulty. He is due for restaging scans this month. Previous scans from April were negative. Overall he is 1 year removed from chemoradiation without any evidence of recu rrence or treatment related long-term sequelae. He is not due for any survivorship items today. I will see him back in 6 months time. Will revisit smoking cessation at that time. Performance Status ECOG 0 Plan Follow up in [address] White Will revisit smoking cessation at next visit Mr. Field was encouraged to call with questions or concerns in the interim period. Billing Statement Total time of [22] minutes was spent preparing for the visit [1], obtaining HPI [4], examining the patient [3], reviewing diagnostic tests [4], discussing management options [4], coordinating care [1], and writing this note [5]. ELDER CABALLERO MD Aug 05, 2021 13:16
== END ==
LOC: M ONCR 12:42
PROVIDERS: ATTEND General Practice
DX: C34.11 Malignant neoplasm of upper lobe, right bronchus or lung (principal); Z92.3 Personal history of irradiation; Z92.21 Personal history of antineoplastic chemotherapy; F17.210 Nicotine dependence, cigarettes, uncomplicated

== ENCOUNTER → 2021-08-19 | Outpatient (CLI) | payer OTHER ==
[~2021-08-19] MED LIST changes: +GASTROGRAFIN SOLUTION 30ML (Q9963) As Ordered ONE; +ISOVUE-370 76% 100ML VIAL As Ordered ONE
--- NOTE | 2021-08-19 15:26 | REP ---
INDICATION: LUNG CA COMPARISON: Multiple the latest 02/10/2021 also with contrast TECHNIQUE: Standard helical technique after the intravenous administration of 100 cc Isovue 370. FINDINGS: The mediastinum and pulmonary rick are stable. No mass or adenopathy has developed. There are no pleural or pericardial effusions. There is no significant change in the imaged upper abdomen. There is evidence of a hyperdense cyst arising from the superior pole the right kidney. This was evident on outside noncontrast enhanced CT examination of the chest dated 02/01/2020 which showed a similar density reading compared to today's exam. Bone window technique throughout the exam shows no significant change in appearance of the imaged osseous structures. Evaluation of the lung craig shows stable asymmetric right upper lobe posterior pleural thickening and a nearly completely resolved asymmetric somewhat spiculated appearing density in the right lower lobe which is also pleural based. There are other lung field opacities which appear stable. There is an unchanged nodule in the right lung base. There are advanced emphysematous changes status quo. There is cylindrical bronchiectasis. IMPRESSION: Although there are advanced chronic lung field changes as described above there has been some improvement particularly in the abnormality in the right lower lobe. There is no revised Fleischner society criteria the recommendation for follow-up of such findings. Close interval follow-up is suggested with clinical correlation. <Electronically signed by Jose Raul Cho > 08/19/21 [id number]
--- NOTE | 2021-08-19 15:31 | REP ---
INDICATION: LUNG CA. COMPARISON: Multiple the latest 02/10/2021 also with contrast TECHNIQUE: Standard helical technique after the intravenous administration of 100 cc Isovue 370 FINDINGS: The liver, gallbladder, spleen, pancreas, adrenal glands, and kidneys are unchanged. Note is again made of tiny hepatic cysts and a hyperdense right renal cyst arising from the superior pole. This shows no evidence of enhancement between the immediate phase and delayed phase imaging. It is also essentially unchanged when compared to a noncontrast enhanced chest CT of 06/02/2019. The abdominal aorta and para-aortic regions are within normal limits. There is no adenopathy. There is no free fluid or free air. The bowel loops and the mesenteries are within normal limits. There is scattered colonic diverticulosis. There is no evidence of a mass or adenopathy. There is no free fluid or free air. There is prostatomegaly status quo. Bone window technique throughout the examination shows chronic spinal, hip, and sacroiliac joint degenerative changes status quo. IMPRESSION: There is no evidence of acute disease. Findings and chronic changes as described above. <Electronically signed by Jose Raul Cho > 08/19/21 [id number]
== END ==
LOC: M RAD 12:43
PROVIDERS: ATTEND Nurse Practitioner Adult Health
DX: C34.90 Malignant neoplasm of unspecified part of unspecified bronchus or lung (principal); N28.1 Cyst of kidney, acquired
CPT/HCPCS: 71260; 74177; Q9963; Q9967

== ENCOUNTER → 2021-12-02 | Outpatient (CLI) | payer OTHER ==
[~2021-12-02] MED LIST changes: -GASTROGRAFIN SOLUTION 30ML (Q9963) As Ordered ONE; +ONDA-84 PO; -ONDA8TAB10 PO; -PROC10TA4 PO; +PROC10TA5 PO
== END ==
LOC: M RAD 14:30
PROVIDERS: ATTEND Internal Medicine Medical Oncology
DX: C34.90 Malignant neoplasm of unspecified part of unspecified bronchus or lung (principal)
CPT/HCPCS: 71260; Q9967

== ENCOUNTER → 2022-06-01 | Outpatient (CLI) | payer OTHER ==
[~2022-06-01] MED LIST changes: +GASTROGRAFIN SOLUTION 30ML (Q9963) As Ordered ONE; +TREL1AER PO
== END ==
LOC: M RAD 08:21
PROVIDERS: ATTEND Internal Medicine Medical Oncology
DX: C34.90 Malignant neoplasm of unspecified part of unspecified bronchus or lung (principal)
CPT/HCPCS: 71260; 74177; Q9963; Q9967

== ENCOUNTER → 2022-07-20 | Outpatient (CLI) | payer OTHER ==
[~2022-07-20] MED LIST changes: -GASTROGRAFIN SOLUTION 30ML (Q9963) As Ordered ONE; -ISOVUE-370 76% 100ML VIAL As Ordered ONE
== END ==
LOC: M PLARAD 10:12
PROVIDERS: ATTEND Internal Medicine Pulmonary Disease
DX: C34.11 Malignant neoplasm of upper lobe, right bronchus or lung (principal)
CPT/HCPCS: 78815; A9552

== ENCOUNTER → 2022-10-12 | Outpatient (CLI) | payer OTHER, MEDICARE ==
[~2022-10-12] MED LIST changes: +PROHANCE 279.3MG/ML 15ML VIAL As Ordered ONE
== END ==
LOC: M RAD 16:29
PROVIDERS: ATTEND Internal Medicine Medical Oncology
DX: C34.90 Malignant neoplasm of unspecified part of unspecified bronchus or lung (principal)
CPT/HCPCS: 70553; A9576

== ENCOUNTER → 2022-11-18 | Outpatient (CLI) | payer MEDICARE, OTHER ==
[~2022-11-18] MED LIST changes: -PROHANCE 279.3MG/ML 15ML VIAL As Ordered ONE
== END ==
LOC: M PLAIMG 10:13
PROVIDERS: ATTEND Internal Medicine Pulmonary Disease
DX: R91.8 Other nonspecific abnormal finding of lung field (principal)

== ENCOUNTER → 2022-12-21 | Outpatient (CLI) | payer OTHER, MEDICARE | LOC: M ONCR 11:46 | PROVIDERS: ATTEND General Practice | DX: C34.11 Malignant neoplasm of upper lobe, right bronchus or lung (principal); C79.51 Secondary malignant neoplasm of bone; F17.218 Nicotine dependence, cigarettes, with other nicotine-induced disorders; R91.1 Solitary pulmonary nodule; Z72.89 Other problems related to lifestyle; Z79.51 Long term (current) use of inhaled steroids; Z79.620 Long term (current) use of immunosuppressive biologic; Z79.899 Other long term (current) drug therapy; Z92.21 Personal history of antineoplastic chemotherapy; Z92.3 Personal history of irradiation ==

== ENCOUNTER 2022-12-30 10:22 | Outpatient (RCR) | payer MEDICARE, OTHER | END 2023-01-01 | LOC: M ONCR 10:22 | PROVIDERS: ATTEND General Practice | DX: C34.11 Malignant neoplasm of upper lobe, right bronchus or lung (principal) ==

== ENCOUNTER 2023-01-15 10:35 | Outpatient (RCR) | payer MEDICARE, OTHER ==
[2023-02-01] MEDS ORDERED: BUDE10.7 IH (13:18)
== END 2023-01-31 ==
LOC: M ONCR 10:35
PROVIDERS: ATTEND General Practice
DX: C34.11 Malignant neoplasm of upper lobe, right bronchus or lung (principal)

== ENCOUNTER → 2023-03-10 | Outpatient (CLI) | payer MEDICARE, OTHER ==
[~2023-03-10] MED LIST changes: +BUDE10.7 IH; +CLOT10TR PO; +PROHANCE 279.3MG/ML 15ML VIAL As Ordered ONE
== END ==
LOC: M RAD 10:16
PROVIDERS: ATTEND General Practice
DX: C34.11 Malignant neoplasm of upper lobe, right bronchus or lung (principal); G93.6 Cerebral edema; D44.5 Neoplasm of uncertain behavior of pineal gland; H74.8X2 Other specified disorders of left middle ear and mastoid; G31.1 Senile degeneration of brain, not elsewhere classified
CPT/HCPCS: 70553; A9576

== ENCOUNTER → 2023-03-17 | Outpatient (CLI) | payer MEDICARE, OTHER ==
[~2023-03-17] MED LIST changes: -PROHANCE 279.3MG/ML 15ML VIAL As Ordered ONE
== END ==
LOC: M ONCR 11:14
PROVIDERS: ATTEND General Practice
DX: C34.11 Malignant neoplasm of upper lobe, right bronchus or lung (principal); G93.9 Disorder of brain, unspecified; F10.10 Alcohol abuse, uncomplicated; F17.218 Nicotine dependence, cigarettes, with other nicotine-induced disorders; Z71.2 Person consulting for explanation of examination or test findings; Z79.51 Long term (current) use of inhaled steroids; Z79.620 Long term (current) use of immunosuppressive biologic; Z79.899 Other long term (current) drug therapy; Z92.21 Personal history of antineoplastic chemotherapy; Z92.3 Personal history of irradiation

== ENCOUNTER → 2023-05-12 | Outpatient (CLI) | payer MEDICARE, OTHER ==
[~2023-05-12] MED LIST changes: -LIDO1CRE42 TOP; +LIDO30CR18 TOP; +PROHANCE 279.3MG/ML 15ML VIAL As Ordered ONE
== END ==
LOC: M RAD 16:55
PROVIDERS: ATTEND General Practice
DX: C34.11 Malignant neoplasm of upper lobe, right bronchus or lung (principal)
CPT/HCPCS: 70553; A9576

== ENCOUNTER → 2023-05-24 | Outpatient (CLI) | payer MEDICARE, OTHER ==
[~2023-05-24] MED LIST changes: +GASTROGRAFIN SOLUTION 30ML As Ordered ONE; +ISOVUE-370 76% 100ML VIAL As Ordered ONE; -PROHANCE 279.3MG/ML 15ML VIAL As Ordered ONE
== END ==
LOC: M RAD 12:54
PROVIDERS: ATTEND Internal Medicine Hematology & Oncology
DX: C34.90 Malignant neoplasm of unspecified part of unspecified bronchus or lung (principal)
CPT/HCPCS: 71260; 74177; Q9963; Q9967

== ENCOUNTER 2023-06-01 13:37 | Outpatient (RCR) | payer MEDICARE, OTHER ==
[~2023-06-01 13:37] MED LIST changes: -GASTROGRAFIN SOLUTION 30ML As Ordered ONE; -ISOVUE-370 76% 100ML VIAL As Ordered ONE; +LEVO25TA5 PO
== END 2023-06-03 ==
LOC: M ONCR 13:37
PROVIDERS: ATTEND General Practice
DX: Z51.0 Encounter for antineoplastic radiation therapy (principal); C79.31 Secondary malignant neoplasm of brain; C34.11 Malignant neoplasm of upper lobe, right bronchus or lung